=== PATIENT | female | born 1995 | race African-American/Black ===

== ENCOUNTER 2017-05-21 14:34 | Emergency (ER) | payer SELFPAY ==
[~2017-05-21] VITALS: Ht 162.6 cm; Wt 61.0 kg
[2017-05-21 14:37] VITALS: BP 140/90
[2017-05-21] MEDS ORDERED: ACETAMINOPHEN 500MG TABLET PO ONE (16:15)
[2017-05-21] MEDS ORDERED: LIDOCAINE HCL 1% 20ML VIAL (Pyxis) INJ MC ONE (16:15)
[2017-05-21] MEDS ORDERED: TETANUS, DIPHTHERIA, PERTUSSIS VAC/PF 0.5ML (>7YR OLD) IM ONE (16:15)
== END 2017-05-21 18:39 | disposition home or self-care (01) ==
LOC: ER 15:08
DX: S61.303A Unspecified open wound of left middle finger with damage to nail, initial encounter (principal); W22.8XXA Striking against or struck by other objects, initial encounter; Y93.89 Activity, other specified; Y92.89 Other specified places as the place of occurrence of the external cause; Y99.8 Other external cause status
CPT/HCPCS: 11730; 90471; 90715; 99283; A4217; J3490; X7700; Z7610; 99284